=== PATIENT | male | born 1965 | race Caucasian/White ===

== ENCOUNTER 2018-09-19 15:03 | Emergency (ER) | payer OTHER ==
[~2018-09-19] VITALS: Ht 177.8 cm; Wt 94.3 kg
[~2018-09-19 15:03] MED LIST: AMOXICILLIN500 MG PO; AMOXIL500 MG PO; ATARAX25 MG PO; ELIMITE5% TP; HYDROCODONE BIT1 T11 PO; IBU800 MG PO; MEDROL DOSEPAK4 MG PO; METOPROLOL25 MG PO; NKHM; PERCOCET 325 MG1 TA2 PO; PREDNICOT20 MG PO; TRAMADOL HCL50 MG PO; VENTOLIN H0.09 MG/AC INH; ZITHROMAX250 MG PO; ZYRTEC10 MG PO
[2018-09-19 15:07] VITALS: BP 160/94
[2018-09-19 16:47] LABS: BASO # 0.1 10*3/uL (0.0-0.1); BASO % 0.8 % (0.0-1.0); EOS # 0.3 10*3/uL (0.0-0.4); EOS % 3.3 % (1.0-4.0); HEMATOCRIT 52.2 % (42.0-52.0); HEMOGLOBIN 17.6 g/dl (14.0-18.0); LYMPH # 2.4 10*3/uL (1.3-4.4); LYMPH % 26.2 % (27.0-41.0); MEAN CELL VOLUME 87.9 fl (80.0-94.0); MEAN CORPUSCULAR HGB 29.6 pg (27.0-31.0); MEAN CORPUSCULAR HGB CONC 33.7 g/dl (33.0-37.0); MEAN PLATELET VOLUME 9.5 fl (9.6-12.3); MONO # 0.9 10*3/uL (0.1-1.0); MONO % 9.8 % (3.0-9.0); NEUT # 5.3 10*3/uL (2.3-7.9); NEUT % 59.3 % (47.0-73.0); PLATELET COUNT AUTOMATED 240 10*3/uL (130-400); RED BLOOD COUNT 5.94 10*6/uL (4.50-5.90); RED CELL DISTRI WIDTH 12.7 % (0-14.5)
[2018-09-19 16:56] LABS: BILIRUBIN NEGATIVE (NEGATIVE); BLOOD 3+ (NEGATIVE); CLARITY SL CLOUDY (CLEAR); COLOR YELLOW (YELLOW); GLUCOSE NEGATIVE (NEGATIVE); KETONE NEGATIVE (NEGATIVE); LEUKO ESTERASE NEGATIVE (NEGATIVE); NITRITE NEGATIVE (NEGATIVE); PH 5.5 (5.0-9.0); SPECIFIC GRAVITY 1.025 (1.005-1.030); UROBILINOGEN 0.2 E.U./dl (0.2-1.0)
[2018-09-19 17:02] LABS: ALBUMIN 4.3 gm/dl (3.1-4.5); CREATININE 1.97 mg/dL (0.70-1.30); POTASSIUM 4.9 mmol/L (3.5-5.1); TOTAL PROTEIN 9.2 gm/dL (6.4-8.2)
[2018-09-19 17:05] LABS: BACTERIA 2+
[2018-09-19] MEDS ORDERED: Motrin,Rufen800 MG PO (19:35)
[2018-09-19] MEDS ORDERED: CYCLOBENZAPRINE5 M3 PO (19:35)
== END 2018-09-19 19:38 | disposition home or self-care (01) ==
LOC: ED 15:03 → EDHOLD 18:14 → ED 19:38
PROVIDERS: Nurse Practitioner Family
DX: S29.011A Strain of muscle and tendon of front wall of thorax, initial encounter (principal); S91.332A Puncture wound without foreign body, left foot, initial encounter; E66.9 Obesity, unspecified; Z68.34 Body mass index [BMI] 34.0-34.9, adult; Z91.030 Bee allergy status; X58.XXXA Exposure to other specified factors, initial encounter; Y93.89 Activity, other specified; Y92.89 Other specified places as the place of occurrence of the external cause; Y99.8 Other external cause status

== ENCOUNTER 2019-09-07 12:00 | Emergency (ER) | payer SELFPAY ==
[~2019-09-07] VITALS: Ht 177.8 cm; Wt 93.4 kg
[~2019-09-07 12:00] MED LIST changes: +CYCLOBENZAPRINE5 M3 PO; +Motrin,Rufen800 MG PO
[2019-09-07] MEDS ORDERED: FLONASE ALLERG9.9 ML NAS (12:43)
[2019-09-07] MEDS ORDERED: AMOXICILLIN500 M2 PO (12:43)
[2019-09-07] MEDS ORDERED: ZYRTEC10 M3 PO (12:43)
== END 2019-09-07 12:45 | disposition home or self-care (01) ==
LOC: ED 12:00
DX: J01.90 Acute sinusitis, unspecified (principal); J04.0 Acute laryngitis; Z87.891 Personal history of nicotine dependence; Z79.899 Other long term (current) drug therapy

== ENCOUNTER 2019-10-16 16:58 | Emergency (ER) | payer SELFPAY ==
[~2019-10-16] VITALS: Ht 177.8 cm; Wt 93.0 kg
[~2019-10-16 16:58] MED LIST changes: +AMOXICILLIN500 M2 PO; +FLONASE ALLERG9.9 ML NAS; +ZYRTEC10 M3 PO
[2019-10-16] MEDS ORDERED: CLINDAMYCIN HC300 MG PO (17:23)
[2019-10-16] MEDS ORDERED: Motrin,Rufen800 MG PO (17:23)
== END 2019-10-16 17:45 | disposition home or self-care (01) ==
LOC: ED 16:58
DX: K08.89 Other specified disorders of teeth and supporting structures (principal); Z79.899 Other long term (current) drug therapy

== ENCOUNTER 2021-11-24 16:02 | Emergency (ER) | payer SELFPAY ==
[~2021-11-24] VITALS: Ht 177.8 cm; Wt 95.3 kg
[~2021-11-24 16:02] MED LIST changes: +CLINDAMYCIN HC300 MG PO
[2021-11-24 17:28] LABS: BASO # 0.1 10*3/uL (0.0-0.1); BASO % 0.6 % (0.0-1.0); EOS # 0.3 10*3/uL (0.0-0.4); EOS % 3.2 % (1.0-4.0); HEMATOCRIT 49.7 % (42.0-52.0); LYMPH # 1.9 10*3/uL (1.3-4.4); LYMPH % 22.6 % (27.0-41.0); MEAN CELL VOLUME 87.5 fl (80.0-94.0); MEAN CORPUSCULAR HGB CONC 33.2 g/dl (33.0-37.0); MEAN PLATELET VOLUME 9.1 fl (9.6-12.3); MONO # 0.6 10*3/uL (0.1-1.0); NEUT # 5.6 10*3/uL (2.3-7.9); NEUT % 66.2 % (47.0-73.0); PLATELET COUNT AUTOMATED 245 10*3/uL (130-400); RED BLOOD COUNT 5.68 10*6/uL (4.50-5.90); RED CELL DISTRI WIDTH 12.9 % (0-14.5); WHITE BLOOD COUNT 8.5 10*3/uL (4.8-10.8)
[2021-11-24 17:36] LABS: BILIRUBIN Negative (Negative); BLOOD Negative (Negative); CLARITY Clear (Clear); COLOR Yellow (Yellow); GLUCOSE Negative (Negative); KETONE Negative (Negative); LEUKO ESTERASE Negative (Negative); NITRITE Negative (Negative); PH 5.5 (4.5-8.0); SPECIFIC GRAVITY 1.025 (1.001-1.030); UROBILINOGEN 0.2 E.U./dl (0.0-1.0)
[2021-11-24 17:51] LABS: ALKALINE PHOSPHATASE 119 U/L (45-117); BUN 17 mg/dl (7-24); CHLORIDE 109 mmol/L (98-107); CREATININE 1.01 mg/dL (0.70-1.30); LIPASE 97 U/L (73-393); POTASSIUM 3.9 mmol/L (3.5-5.1); SGOT/AST 11 IU/L (3-35); SGPT/ALT 20 U/L (12-78); SODIUM 140 mmol/L (136-145); TOTAL PROTEIN 7.3 gm/dL (6.4-8.2)
[2021-11-24 17:53] LABS: BACTERIA TRACE; MUCOUS 1+; RBC 0-2 rbc/hpf (0-2)
[2021-11-24] MEDS ORDERED: ZANAFLEX4 MG PO (19:12)
[2021-11-24] MEDS ORDERED: NAPROSYN500 MG PO (19:12)
== END 2021-11-24 19:25 | disposition home or self-care (01) ==
LOC: ED 16:02
PROVIDERS: Nurse Practitioner Family
DX: S83.91XA Sprain of unspecified site of right knee, initial encounter (principal); R10.31 Right lower quadrant pain; X50.9XXA Other and unspecified overexertion or strenuous movements or postures, initial encounter; Y93.89 Activity, other specified; Y92.89 Other specified places as the place of occurrence of the external cause; Y99.8 Other external cause status

== ENCOUNTER 2024-09-19 17:39 | Emergency (ER) | payer SELFPAY ==
[~2024-09-19] VITALS: Ht 177.8 cm; Wt 104.3 kg
[~2024-09-19 17:39] MED LIST changes: +NAPROSYN500 MG PO; +ZANAFLEX4 MG PO
[2024-09-19] MEDS ORDERED: SEPTDS PO (18:12)
== END 2024-09-19 18:21 | disposition home or self-care (01) ==
LOC: ED 17:39
DX: L03.115 Cellulitis of right lower limb (principal); Z79.899 Other long term (current) drug therapy

== ENCOUNTER 2024-12-09 16:43 | Emergency (ER) | payer SELFPAY ==
[~2024-12-09] VITALS: Ht 177.8 cm
[~2024-12-09 16:43] MED LIST changes: +SEPTDS PO
[2024-12-09] MEDS ORDERED: Sulfamethoxazole/Trimethopri 1 TAB TAB PO ONE (18:05)
[2024-12-09] MEDS ORDERED: Acetaminophen/Oxycodone 5 MG/325 MG TABLET PO ONE (18:05)
== END 2024-12-09 18:24 | disposition home or self-care (01) ==
LOC: ED 16:43
DX: L03.312 Cellulitis of back [any part except buttock and flank] (principal); I10 Essential (primary) hypertension; E78.5 Hyperlipidemia, unspecified; Z79.899 Other long term (current) drug therapy